=== PATIENT | male | born 1985 | race Caucasian/White ===

== ENCOUNTER → 2021-06-20 | Outpatient (CLI) | payer OTHER ==
[~2021-06-20] MED LIST: RT-ALBUTEROL SULF 2.5 MG/3 ML PRE-MIX VIAL INH ONE
== END ==
LOC: RT 09:15
PROVIDERS: ATTEND Nurse Practitioner
DX: R06.00 Dyspnea, unspecified (principal)
CPT/HCPCS: 94060; 94726; 94729

== ENCOUNTER 2021-12-18 10:50 | Emergency (ER) | payer OTHER ==
[~2021-12-18] VITALS: Ht 182 cm; Wt 204.0 kg
[2021-12-18] MEDS ORDERED: NS IV 1000 ML 1,000 ML IV STA (11:10)
[2021-12-18] MEDS ORDERED: fentaNYL INJ 100 MCG/2 ML AMP IVP STA (11:10)
[2021-12-18] MEDS ORDERED: ONDANSETRON 4 MG/2 ML (SDV) Z0FRAN IVP ONE (11:15)
--- NOTE | 2021-12-18 11:15 | ED Abdominal Pain ---
General Chief Complaint: Abdominal/GI Problems Stated Complaint: ABD PAIN Nursing Triage Note: PATIENT VERBALIZED 0400AM DIARRHEA AND ABDOMINAL PAIN MIDLINE RADIATING TO RIGHT SIDE. STATES DIARRHEA 2 HOURS LIQUID. STATES SOB ALSO STARTED 0400 Source of Information: Patient Exam Limitations: No Limitations History of Present Illness Date Seen by Provider: December 18, 2021 Time Seen by Provider: 11:13 Initial Comments Patient is a 36-year-old male presents ED with epigastric, right upper quadrant pain. Started around 4:00 this morning. Sharp pain. States he had to go to the bathroom and immediately felt the pain. Radiating pain to the right lateral abdomen. Nausea without any vomiting. Several episodes of diarrhea for 2 hours without any blood or mucus. Denies history of similar pain. No history of previous abdominal surgery. Associate shortness of breath with the pain. No history of coronary artery disease, COPD, asthma. Denies history of acid reflux, GERD or peptic ulcer disease. Denies excessive NSAID use or alcohol use. Denies eating anything different last night and may be associated with the pain. Denies fever, cough, headache, dizziness, dysuria, hematuria. Allergies and Home Medications Allergies Coded Allergies: No Known Drug Allergies (Unverified , 06/20/21) Patient Home Medication List Home Medication List Reviewed: Yes Hydrocodone/Acetaminophen (Hydrocodone-Acetamin 5-325 mg) 5 Mg-325 Mg Tablet, 1 TAB PO Q4H PRN for PAIN-MODERATE (5-7) Prescribed by: HANNAH SEQUEIRA on 12/18/21 140 Ondansetron (Ondansetron Odt) 4 Mg Tab.rapdis, 4 MG PO Q4H Prescribed by: HANNAH SEQUEIRA on 12/18/21 140 Pantoprazole Sodium (Protonix) 40 Mg Tablet.dr, 40 MG PO DAILY Prescribed by: HANNAH SEQUEIRA on 12/18/21 1402 Review of Systems Review of Systems Constitutional: No chills, No malaise, No weakness EENTM: No Blurred Vision, No Eye Pain Respiratory: Denies Cough, Denies Orthopnea; Shortness of Air; Denies SOA With Exertion, Denies SOA at Rest Cardiovascular: Denies Chest Pain, Denies Edema Gastrointestinal: Abdominal Pain, Diarrhea, Nausea; Denies Vomiting Genitourinary: Denies Burning, Denies Discharge Musculoskeletal: No back pain, No joint pain Skin: No change in color, No change in hair/nails All Other Systems Reviewed Negative Unless Noted: Yes Past Uzalfqx-Qdnjki-Gipcrg Hx Patient Social History Tobacco Use?: No Use of E-Cig and/or Vaping dev: No Substance use?: No Alcohol Use?: No Immunizations Up To Date Influenza Vaccine Up-to-Date: No; Not Current First/Initial COVID19 Vaccinat: N\\A Second COVID19 Vaccination Tam: N\\A Past Medical History Surgery/Hospitalization HX: VASECTOMY, Physical Exam Vital Signs Vital Signs - First Documented 12/18/21 12/18/21 11:05 14:08 Temp 36.0 Pulse 93 Resp 20 B/P (MAP) 129/92 (104) Pulse Ox 99 O2 Delivery Room Air Capillary Refill : Less Than 3 Seconds Height/Weight/BMI Height: '" Weight: lbs. oz. kg; 61.00 BMI Method: General Appearance: WD/WN, no apparent distress HEENT: PERRL/EOMI, normal ENT inspection, TMs normal, pharynx normal Neck: non-tender, full range of motion, supple, normal inspection Respiratory: chest non-tender, lungs clear, normal breath sounds, no respiratory distress, no accessory muscle use Cardiovascular: regular rate, rhythm, no edema, no gallop, no JVD Gastrointestinal: normal bowel sounds, non tender, no organomegaly, no pulsatile mass, tenderness (Epigastric tenderness, right upper quadrant tenderness) Extremities: normal range of motion, non-tender, normal inspection, no pedal edema Neurologic/Psychiatric: cell geneticist II-XII nml as tested, no motor/sensory deficits, alert, normal mood/affect, oriented x 3 Skin: normal color, warm/dry Progress/Results/Core Measures Results/Orders Lab Results Laboratory Tests Test 12/18/21 11:15 Range/Units White Blood Count 11.2 H 4.3-11.0 10^3/uL Red Blood Count 4.95 4.30-5.52 10^6/uL Hemoglobin 13.4 13.3-17.7 g/dL Hematocrit 43 40-54 % Mean Corpuscular Volume 87 80-99 fL Mean Corpuscular Hemoglobin 27 25-34 pg Mean Corpuscular Hemoglobin Concent 31 L 32-36 g/dL Red Cell Distribution Width 14.6 H 10.0-14.5 % Platelet Count 411 H 130-400 10^3/uL Mean Platelet Volume 9.2 9.0-12.2 fL Immature Granulocyte % (Auto) 1 % Neutrophils (%) (Auto) 74 42-75 % Lymphocytes (%) (Auto) 18 12-44 % Monocytes (%) (Auto) 6 0-12 % Eosinophils (%) (Auto) 1 0-10 % Basophils (%) (Auto) 0 0-10 % Neutrophils # (Auto) 8.3 H 1.8-7.8 10^3/uL Lymphocytes # (Auto) 2.0 1.0-4.0 10^3/uL Monocytes # (Auto) 0.7 0.0-1.0 10^3/uL Eosinophils # (Auto) 0.1 0.0-0.3 10^3/uL Basophils # (Auto) 0.0 0.0-0.1 10^3/uL Immature Granulocyte # (Auto) 0.1 0.0-0.1 10^3/uL Sodium Level 141 135-145 MMOL/L Potassium Level 4.3 3.6-5.0 MMOL/L Chloride Level 106 98-107 MMOL/L Carbon Dioxide Level 21 21-32 MMOL/L Anion Gap 14 5-14 MMOL/L Blood Urea Nitrogen 14 7-18 MG/DL Creatinine 0.88 0.60-1.30 MG/DL Estimat Glomerular Filtration Rate 116 BUN/Creatinine Ratio 16 Glucose Level 120 H 70-105 MG/DL Calcium Level 9.8 8.5-10.1 MG/DL Corrected Calcium 9.8 8.5-10.1 MG/DL Total Bilirubin 0.4 0.1-1.0 MG/DL Aspartate Amino Transf (AST/SGOT) 21 5-34 U/L Alanine Aminotransferase (ALT/SGPT) 34 0-55 U/L Alkaline Phosphatase 79 40-136 U/L Troponin I < 0.028 <0.028 NG/ML Total Protein 8.1 6.4-8.2 GM/DL Albumin 4.0 3.2-4.5 GM/DL Lipase 11 8-78 U/L My Orders Orders - GISSELL WAED Cbc With Automated Diff (12/18/21 11:10) Comprehensive Metabolic Panel (12/18/21 11:10) Lipase (12/18/21 11:10) Troponin I [place] (12/18/21 11:10) Chest 1 View, Ap/Pa Only (12/18/21 11:10) Ekg Tracing (12/18/21 11:10) Ns Iv 1000 Ml (Sodium Chloride 0.9%) (12/18/21 11:10) Ondansetron Injection (Zofran Injectio (12/18/21 11:15) Fentanyl Inj (Sublimaze Injection) (12/18/21 11:10) Di Iv Start (Assessment) .IV start (12/18/21 11:19) Us Gallbladder [id number] (12/18/21 11:47) Lidocaine 2% Viscous 15 Ml (Xylocaine Vi (12/18/21 13:00) Antacid Suspension (Mylanta Suspension (12/18/21 13:00) Medications Given in ED Current Medications Medications Dose Ordered Sig/Miguel Ángel Route Start Time Stop Time Status Last Admin Dose Admin Al Hydrox/Mg Hydrox/Simethicone 30 ml ONCE ONCE PO 12/18/21 13:00 12/18/21 13:02 DC 12/18/21 13:07 30 ML Lidocaine HCl 15 ml ONCE ONCE PO 12/18/21 13:00 12/18/21 13:02 DC 12/18/21 13:07 15 ML Ondansetron HCl 4 mg ONCE ONCE IVP 12/18/21 11:15 12/18/21 11:16 DC 12/18/21 11:27 4 MG Vital Signs/I&O 12/18/21 12/18/21 11:05 14:08 Temp 36.0 Pulse 93 93 Resp 20 20 B/P (MAP) 129/92 (104) 129/92 Pulse Ox 99 99 O2 Delivery Room Air Room Air Blood Pressure Mean: 104 Comment Sinus rhythm with sinus arrhythmia, possible right ventricular conduction delay, moderate voltage criteria for LVH, 87 bpm, QRS duration 90 MS, QTC 401 MS Departure Communication (PCP) Patient with pain to his epigastric and right upper quadrant with radiation to the back. Started early this morning waking patient up. Does elevate his head at night and wears CPAP. Vomiting with several episodes of diarrhea. He has no lower abdominal tenderness such as his left lower and right lower quadrant. Epigastric and right upper quadrant tenderness. Patient is over 450 pounds and does not fit for the CT scanner. Concerning for acute cholecystitis so ultrasound was ordered. Ultrasound was negative for any gallbladder wall thickening, cholelithiasis. Normal lipase but did have slight elevated white blood count. Normal bilirubin and liver enzymes. Was given dose of pain medication as well as GI cocktail with improvement of his pain. Cardiac work-up was ordered secondary to location of pain which was unremarkable. Chest x-ray was negative for pneumonia, pneumothorax, mass. Denies history of similar type pain. No history of previous abdominal surgery. Discussed potential etiologies gastritis, peptic ulcer disease, gallbladder disease. Recommended GI outpatient follow-up. May need further imaging to rule out other potential etiologies such as HIDA scan, upper EGD. Patient agrees. Will discharge with PPI. Does report some burning sensation to his throat with burping. No known cardiac history. Discussed weight changes and diet changes. Avoid eating late at night. Return precaution were discussed with patient. Patient cardiac work-up unremarkable. No history of coronary artery disease, COPD or asthma Impression Primary Impression: Upper abdominal pain Disposition: 01 HOME, SELF-CARE Condition: Stable Departure-Patient Inst. Decision time for Depature: 14:00 Referrals: [facility] (PCP/Family) Primary Care Physician ANDRES MORENO MD Patient Instructions: Abdominal Pain, Adult ED Scripts Hydrocodone/Acetaminophen (Hydrocodone-Acetamin 5-325 mg) 5 Mg-325 Mg Tablet 1 TAB PO Q4H PRN for PAIN-MODERATE (5-7), #6 TAB Prov: GISSELL WADE 12/18/21 Ondansetron (Ondansetron Odt) 4 Mg Tab.rapdis 4 MG PO Q4H for Nausea, #8 TAB Prov: GISSELL WADE 12/18/21 Pantoprazole Sodium (Protonix) 40 Mg Tablet.dr 40 MG PO DAILY, #20 TAB Prov: GISSELL WADE 12/18/21 GISSELL WADE December 18, 2021 11:15
[2021-12-18] MEDS ORDERED: IOHEXOL 350 MG/ML 100 ML (OMNIPAQUE 350) VIAL IV ONE (11:30)
[2021-12-18] MEDS ORDERED: NS 100 ML (IVPB) BAG IV ONE (11:30)
[2021-12-18] MEDS ORDERED: CATHETER FLUSH 10 ML SYR IV PRN (11:30)
[2021-12-18] MEDS ORDERED: HOLD METFORMIN - RECEIVED CONTRAST 20 ML VIAL IV SCH (11:30)
[2021-12-18 11:33] LABS: BASOPHILS % (AUTO) 0 % (0-10); EOSINOPHILS # (AUTO) 0.1 10^3/uL (0.0-0.3); EOSINOPHILS % (AUTO) 1 % (0-10); HEMATOCRIT 43 % (40-54); HEMOGLOBIN 13.4 g/dL (13.3-17.7); LYMPHOCYTES % (AUTO) 18 % (12-44); MEAN CORPUSCULAR HEMOGLOBIN 27 pg (25-34); MEAN CORPUSCULAR HGB CONC 31 g/dL (32-36); MEAN CORPUSCULAR VOLUME 87 fL (80-99); MEAN PLATELET VOLUME 9.2 fL (9.0-12.2); MONOCYTES # (AUTO) 0.7 10^3/uL (0.0-1.0); MONOCYTES % (AUTO) 6 % (0-12); NEUTROPHILS # (AUTO) 8.3 10^3/uL (1.8-7.8); NEUTROPHILS % (AUTO) 74 % (42-75); PLATELET COUNT 411 10^3/uL (130-400); WHITE BLOOD COUNT 11.2 10^3/uL (4.3-11.0)
[2021-12-18 11:40] LABS: CHLORIDE 106 MMOL/L (98-107); POTASSIUM 4.3 MMOL/L (3.6-5.0); SODIUM 141 MMOL/L (135-145)
[2021-12-18 11:41] LABS: CALCIUM 9.8 MG/DL (8.5-10.1)
[2021-12-18 11:42] LABS: GLUCOSE 120 MG/DL (70-105); TOTAL PROTEIN 8.1 GM/DL (6.4-8.2)
[2021-12-18 11:43] LABS: CARBON DIOXIDE 21 MMOL/L (21-32)
[2021-12-18 11:44] LABS: BILIRUBIN,TOTAL 0.4 MG/DL (0.1-1.0)
[2021-12-18 11:46] LABS: ALKALINE PHOSPHATASE 79 U/L (40-136); CREATININE SERUM 0.88 MG/DL (0.60-1.30); GFR ESTIMATED 116
[2021-12-18 11:47] LABS: BUN/CREATININE RATIO 16
[2021-12-18 11:49] LABS: ALANINE AMINOTRANSFERASE 34 U/L (0-55); LIPASE 11 U/L (8-78)
--- NOTE | 2021-12-18 12:04 | Diagnostic Imaging Report ---
INDICATION: Patient right upper quadrant pain. EXAM: Portable chest x-ray upright view. COMPARISON: None. FINDINGS: Lungs/pleura: Lungs are clear. There is no pneumothorax. There is no pleural effusion. Mediastinum: Unremarkable. Pulmonary vasculature: Unremarkable. Heart: Cardiac silhouette appears enlarged but may be related to portable projection.. Bones/extrathoracic soft tissue: Unremarkable. IMPRESSION: There is no radiographic evidence of acute cardiopulmonary process. Dictated by: Dictated on workstation # [id number]
[2021-12-18] MEDS ORDERED: ANTACID SUSP 30 ML UDC (MYLANTA) PO ONE (13:00)
[2021-12-18] MEDS ORDERED: LIDOCAINE 2% VISCOUS 15 ML UDC PO ONE (13:00)
--- NOTE | 2021-12-18 13:13 | Diagnostic Imaging Report ---
PROCEDURE: US Gallbladder. TECHNIQUE: Multiple real-time grayscale images were obtained over the right upper quadrant in various projections. INDICATION: Right upper quadrant pain COMPARISON: None available. FINDINGS: The liver is enlarged measuring over 21 cm in length. The liver demonstrates diffusely increased echogenicity with a coarsened echotexture and poor acoustic transmission. No definitive focal hepatic mass is identified. Normal direction of flow within the main portal vein, though this is not well visualized. The gallbladder is unremarkable. The common bile duct is unable be visualized secondary to overlying bowel gas. Visualized portions of pancreas are unremarkable. /Portions of the abdominal aorta and inferior vena cava are unremarkable. The right kidney is unremarkable without hydronephrosis. No significant free fluid. Negative sonographic Jane sign. Examination slightly limited secondary to patient body habitus. IMPRESSION: Fatty filtration liver. Hepatomegaly. Otherwise, unremarkable examination within the limits of the exam. Dictated by: Dictated on workstation # [id number]
[2021-12-18] MEDS ORDERED: ONDA4TAB11 PO (14:02)
[2021-12-18] MEDS ORDERED: ACHD5005 PO (14:02)
[2021-12-18] MEDS ORDERED: PANT40TA2 PO (14:02)
[2021-12-18 14:08] VITALS: BP 129/92
== END 2021-12-18 14:09 | disposition home or self-care (01) ==
LOC: EDUNIT# 10:50 → ER 10:51
DX: R11.2 Nausea with vomiting, unspecified (principal); R19.7 Diarrhea, unspecified; D72.829 Elevated white blood cell count, unspecified; Z99.89 Dependence on other enabling machines and devices
CPT/HCPCS: 36415; 71045; 76705; 80053; 83690; 84484; 85025; 93005